=== PATIENT | female | born 1960 | race Caucasian/White ===

== ENCOUNTER 2018-08-26 09:47 | Outpatient (CLI) | payer SELFPAY | END 2018-08-26 09:48 | disposition home or self-care (01) | LOC: LAB 09:47 | PROVIDERS: ATTEND Physician Assistant | DX: Z02.1 Encounter for pre-employment examination (principal) | CPT/HCPCS: 36415; 81599; 86317; 86480; 86735; 86762; 86765; 86787 ==

== ENCOUNTER 2020-06-23 09:13 | Outpatient (CLI) | payer OTHER ==
[2020-06-23 09:55] LABS: % IRON SATURATION 29 % (20-50); ALBUMIN 3.9 g/dL (3.2-5.5); ALBUMIN/GLOBULIN RATIO 1.2 (1.0-2.2); ALKALINE PHOSPHATASE 113 IU/L (42-121); ALT ALANINE AMINOTRANSFERASE 19 IU/L (10-60); AST ASPARTATE AMINOTRANSFERASE 21 IU/L (10-42); BILIRUBIN,TOTAL 0.8 mg/dL (0.2-1.0); BUN - BLOOD UREA NITROGEN 11 mg/dL (6-20); CALCIUM 8.9 mg/dL (8.5-10.3); CARBON DIOXIDE - CO2 24 mmol/L (21-32); CHLORIDE 104 mmol/L (101-111); CHOL/HDL RATIO 2.8 (<4.4); CHOLESTEROL 168 mg/dL; CREATININE 0.8 mg/dL (0.4-1.0); GLUCOSE 95 mg/dL (70-100); HDL CHOLESTEROL 60 mg/dL; IRON 93 ug/dL (28-170); LDL CHOLESTEROL,CALCULATED 95 mg/dL; LDL/HDL RATIO 1.6 (<4.4); SODIUM 138 mmol/L (135-145); TOTAL IRON BINDING CAPACITY 319 ug/dL (250-450); TOTAL PROTEIN 7.1 g/dL (6.7-8.2); TRANSFERRIN 228 mg/dL (192-382); VLDL CHOLESTEROL 13 mg/dL
[2020-06-23 10:11] LABS: FERRITIN 155.7 ng/mL (11.0-306.8)
[2020-06-23 10:15] LABS: FOLATE 22.67 ng/mL (5.90 - >24.8)
== END 2020-06-23 09:14 | disposition home or self-care (01) ==
LOC: LAB 09:13
PROVIDERS: ATTEND Physician Assistant Medical
DX: Z00.00 Encounter for general adult medical examination without abnormal findings (principal); Z98.84 Bariatric surgery status
CPT/HCPCS: 36415; 80053; 80061; 82607; 82728; 82746; 83540; 83721; 84443; 84466

== ENCOUNTER 2020-06-26 15:57 | Outpatient (CLI) | payer OTHER ==
[2020-06-26 16:17] LABS: BASOPHILS % (AUTO) 0.6 %; EOSINOPHILS # (AUTO) 0.2 10^3/uL (0.0-0.7); EOSINOPHILS % (AUTO) 2.9 %; HGB - HEMOGLOBIN 13.7 g/dL (12.0-16.0); LYMPHOCYTES # (AUTO) 2.3 10^3/uL (1.5-3.5); MEAN CORPUSCULAR HEMOGLOBIN 31.9 pg (27.0-31.0); MEAN CORPUSCULAR HGB CONC 33.1 g/dL (32.0-36.0); MEAN CORPUSCULAR VOLUME 96.5 fL (81.0-99.0); MONOCYTES # (AUTO) 0.6 10^3/uL (0.0-1.0); MONOCYTES % (AUTO) 8.5 %; NEUTROPHILS # (AUTO) 3.4 10^3/uL (1.5-6.6); NEUTROPHILS % (AUTO) 51.7 %; PLT - PLATELET COUNT 300 10^3/uL (130-450); RED BLOOD COUNT 4.29 10^6/uL (4.20-5.40); RED CELL DISTRIBUTION WIDTH 13.8 % (12.0-15.0); WHITE BLOOD COUNT 6.5 x10^3/uL (4.8-10.8)
== END 2020-06-26 15:58 | disposition home or self-care (01) ==
LOC: LAB 15:57
PROVIDERS: ATTEND Physician Assistant Medical
DX: Z00.00 Encounter for general adult medical examination without abnormal findings (principal); Z98.84 Bariatric surgery status
CPT/HCPCS: 85025

== ENCOUNTER 2020-11-24 09:15 | Outpatient (CLI) | payer OTHER ==
--- NOTE | 2020-11-27 11:44 | Mammography Report ---
BILATERAL DIGITAL SCREENING MAMMOGRAM 3D/2D: 11/24/2020 CLINICAL: Routine screening. Comparison is made to exams dated: 09/25/2018 mammogram, 09/25/2017 mammogram, and 10/08/2016 mammogram - [facility]. There are scattered fibroglandular elements in both breasts. No significant masses, calcifications, or other findings are seen in either breast. There has been no significant interval change. IMPRESSION: NEGATIVE There is no mammographic evidence of malignancy. A 1 year screening mammogram is recommended. This exam was interpreted at Station ID: [id number]. NOTE: For mammograms, a report in lay terms will be sent to the patient. Approximately 15% of breast malignancies will not be visualized mammographically. In the management of a palpable breast mass, a negative mammogram must not discourage biopsy of a clinically suspicious lesion. Electronically Signed By: Сергей Griffiths M.D. aty/penrad:11/24/2020 13:07:09 ACR BI-RADS Category 1: Negative 3341F PARENCHYMAL PATTERN: (A) - The breast(s) demonstrate(s) scattered fibroglandular densities. BI-RADS CATEGORY: (1) - 1 RECOMMENDATION: (ANNUAL) - Recommend routine annual screening mammography. [id number] 1 year screening LATERALITY: (B)
== END 2020-11-24 09:16 | disposition home or self-care (01) ==
LOC: DI 09:15
DX: Z12.31 Encounter for screening mammogram for malignant neoplasm of breast (principal)

== ENCOUNTER 2021-02-09 14:34 | Outpatient (CLI) | payer OTHER ==
[2021-02-09 18:11] LABS: BASOPHILS # (AUTO) 0.1 10^3/uL (0.0-0.1); BASOPHILS % (AUTO) 0.8 %; EOSINOPHILS # (AUTO) 0.2 10^3/uL (0.0-0.7); EOSINOPHILS % (AUTO) 2.8 %; HGB - HEMOGLOBIN 13.7 g/dL (12.0-16.0); LYMPHOCYTES # (AUTO) 2.2 10^3/uL (1.5-3.5); LYMPHOCYTES % (AUTO) 34.7 %; MEAN CORPUSCULAR HEMOGLOBIN 31.6 pg (27.0-31.0); MEAN CORPUSCULAR HGB CONC 32.6 g/dL (32.0-36.0); MEAN PLATELET VOLUME 10.6 fL (7.9-10.8); MONOCYTES # (AUTO) 0.5 10^3/uL (0.0-1.0); MONOCYTES % (AUTO) 7.6 %; NEUTROPHILS # (AUTO) 3.5 10^3/uL (1.5-6.6); NEUTROPHILS % (AUTO) 53.8 %; PLT - PLATELET COUNT 291 10^3/uL (130-450); RED BLOOD COUNT 4.33 10^6/uL (4.20-5.40); RED CELL DISTRIBUTION WIDTH 13.7 % (12.0-15.0); WHITE BLOOD COUNT 6.5 x10^3/uL (4.8-10.8)
[2021-02-09 18:55] LABS: % IRON SATURATION 25 % (20-50); IRON 78 ug/dL (28-170); TOTAL IRON BINDING CAPACITY 314 ug/dL (250-450); TRANSFERRIN 224 mg/dL (192-382)
[2021-02-09 19:02] LABS: FERRITIN 120.7 ng/mL (11.0-306.8)
== END 2021-02-09 23:59 | disposition home or self-care (01) ==
LOC: LAB.WCP 14:34
PROVIDERS: ATTEND Physician Assistant Medical
DX: Z98.84 Bariatric surgery status (principal); D50.9 Iron deficiency anemia, unspecified
CPT/HCPCS: 36415; 82607; 82728; 83540; 84466; 85025

== ENCOUNTER 2021-10-04 11:58 | Outpatient (CLI) | payer OTHER ==
[2021-10-04 12:26] LABS: BASOPHILS # (AUTO) 0.1 10^3/uL (0.0-0.1); BASOPHILS % (AUTO) 0.9 %; EOSINOPHILS # (AUTO) 0.1 10^3/uL (0.0-0.7); EOSINOPHILS % (AUTO) 1.7 %; HCT - HEMATOCRIT 40.6 % (37.0-47.0); HGB - HEMOGLOBIN 13.7 g/dL (12.0-16.0); LYMPHOCYTES % (AUTO) 31.3 %; MEAN CORPUSCULAR HEMOGLOBIN 31.9 pg (27.0-31.0); MEAN CORPUSCULAR HGB CONC 33.7 g/dL (32.0-36.0); MEAN CORPUSCULAR VOLUME 94.6 fL (81.0-99.0); MONOCYTES # (AUTO) 0.4 10^3/uL (0.0-1.0); MONOCYTES % (AUTO) 5.8 %; NEUTROPHILS # (AUTO) 3.9 10^3/uL (1.5-6.6); NEUTROPHILS % (AUTO) 60.1 %; PLT - PLATELET COUNT 290 10^3/uL (130-450); RED BLOOD COUNT 4.29 10^6/uL (4.20-5.40); RED CELL DISTRIBUTION WIDTH 13.6 % (12.0-15.0); WHITE BLOOD COUNT 6.5 x10^3/uL (4.8-10.8)
[2021-10-04 12:43] LABS: ALBUMIN 3.9 g/dL (3.2-5.5); ALBUMIN/GLOBULIN RATIO 1.2 (1.0-2.2); ALKALINE PHOSPHATASE 99 IU/L (42-121); ALT ALANINE AMINOTRANSFERASE 18 IU/L (10-60); AST ASPARTATE AMINOTRANSFERASE 18 IU/L (10-42); BUN - BLOOD UREA NITROGEN 11 mg/dL (6-20); CALCIUM 9.1 mg/dL (8.5-10.3); CARBON DIOXIDE - CO2 28 mmol/L (21-32); CHLORIDE 104 mmol/L (101-111); CHOL/HDL RATIO 2.8 (<4.4); CHOLESTEROL 172 mg/dL; CREATININE 0.7 mg/dL (0.4-1.0); GFR - MDRD 86 (>89); GLUCOSE 94 mg/dL (70-100); HDL CHOLESTEROL 61 mg/dL; LDL CHOLESTEROL,CALCULATED 99 mg/dL; LDL/HDL RATIO 1.6 (<4.4); POTASSIUM 4.1 mmol/L (3.5-5.0); SODIUM 141 mmol/L (135-145); TOTAL PROTEIN 7.2 g/dL (6.7-8.2); TRIGLYCERIDES 59 mg/dL; VLDL CHOLESTEROL 12 mg/dL
[2021-10-04 12:54] LABS: THYROID STIMULATING HORMONE 2.1 uIU/mL (0.34-5.60)
[2021-10-04 13:00] LABS: FERRITIN 110.7 ng/mL (11.0-306.8)
== END 2021-10-04 11:59 | disposition home or self-care (01) ==
LOC: LAB 11:58
PROVIDERS: ATTEND Physician Assistant Medical
DX: Z00.00 Encounter for general adult medical examination without abnormal findings (principal); D50.9 Iron deficiency anemia, unspecified; E78.5 Hyperlipidemia, unspecified
CPT/HCPCS: 36415; 80050; 80061; 82306; 82607; 82728; 83721

== ENCOUNTER 2021-10-12 13:45 | Outpatient (CLI) | payer OTHER ==
--- NOTE | 2021-10-12 14:59 | XRAY Report ---
PROCEDURE: Knee 3 View BILAT INDICATIONS: BILATER KNEE PAIN TECHNIQUE: 3 views of right and left knee(s) were acquired. COMPARISON: None. FINDINGS: Bones: No fractures or dislocations. No suspicious bony lesions. Moderate degenerative joint disea se, most pronounced in the patellofemoral joints. Possible intra-articular bodies bilaterally. Soft tissues: Trace bilateral joint effusion. No suspicious soft tissue calcifications. IMPRESSION: 1. Moderate degenerative joint disease bilaterally. 2. Possible intra-articular bodies bilaterally. Reviewed by: Joes M Lechuga MD on 10/12/2021 2:58 PM PDT Approved by: Jose M Lechuga MD on 10/12/2021 2:58 PM PDT Station ID: [id number]
== END 2021-10-12 13:46 | disposition home or self-care (01) ==
LOC: DI 13:45
PROVIDERS: ATTEND Physician Assistant Medical
DX: M17.0 Bilateral primary osteoarthritis of knee (principal); R93.6 Abnormal findings on diagnostic imaging of limbs

== ENCOUNTER 2021-12-06 14:45 | Outpatient (CLI) | payer OTHER ==
--- NOTE | 2021-12-07 08:23 | Mammography Report ---
BILATERAL DIGITAL SCREENING MAMMOGRAM 3D/2D: 12/06/2021 CLINICAL: Routine screening. Comparison is made to exams dated: 11/24/2020 mammogram - [facility], 09/25/2018 [facility] mogram, 09/25/2017 mammogram, and 10/08/2016 mammogram - [facility]. There are scattere d fibroglandular elements in both breasts. No significant masses, calcifications, or other findings are seen in either breast. There has been no significant interval change. IMPRESSION: NEGATIVE There is no mammographic evidence of malignancy. A 1 year screening mammogram is recommended. This exam was interpreted at Station ID: [id number]. NOTE: For mammograms, a report in lay terms will be sent to the patient. Approximately 15% of breast malignancies will not be visualized mammographically. In the management of a palpable breast mass, a negative mammogram must not discourage biopsy of a clinically suspicious lesion. Electronically Signed By: Fernando castillo/porfirio:12/06/2021 16:52:53 ACR BI-RADS Category 1: Negative 3341F PARENCHYMAL PATTERN: (A) - The breast(s) demonstrate(s) scattered fibroglandular densities. BI-RADS CATEGORY: (1) - 1 RECOMMENDATION: (ANNUAL) - Recommend routine annual screening mammography. [id number] 1 year screening LATERALITY: (B)
== END 2021-12-06 14:46 | disposition home or self-care (01) ==
LOC: DI.N 14:45
DX: Z12.31 Encounter for screening mammogram for malignant neoplasm of breast (principal)

== ENCOUNTER 2022-11-05 14:30 | Outpatient (CLI) | payer OTHER ==
--- NOTE | 2022-11-05 18:06 | XRAY Report ---
PROCEDURE: Knee 2 View LT INDICATIONS: PAIN IN LEFT KNEE TECHNIQUE: 2 views of the left knee(s) were acquired. COMPARISON: None. FINDINGS: Bones: No fractures or dislocations. No suspicious bony lesions. Definite osteophytes and possibl e narrowing of joint space. This is tricompartmental. Soft tissues: Moderate knee joint effusion. No suspicious soft tissue calcifications or masses. IMPRESSION: Moderate knee joint effusion. No acute bony abnormality. Tricompartmental Kellgren-Italo scale of osteoarthritis: Grade 2: mild osteoarthritis. Reviewed by: Trey Rose on 11/05/2022 5:04 PM CHRISTA Approved by: Trey Rose on 11/05/2022 5:04 PM CHRISTA Station ID: [id number]
== END 2022-11-05 14:45 | disposition home or self-care (01) ==
LOC: DI.N 14:30
PROVIDERS: ATTEND Nurse Practitioner
DX: M17.12 Unilateral primary osteoarthritis, left knee (principal); M25.462 Effusion, left knee

== ENCOUNTER 2022-11-20 12:44 | Outpatient (CLI) | payer OTHER ==
[2022-11-20 13:03] LABS: BASOPHILS # (AUTO) 0.1 10^3/uL (0.0-0.1); BASOPHILS % (AUTO) 0.9 %; EOSINOPHILS # (AUTO) 0.2 10^3/uL (0.0-0.7); EOSINOPHILS % (AUTO) 2.4 %; HCT - HEMATOCRIT 40.3 % (37.0-47.0); HGB - HEMOGLOBIN 13.5 g/dL (12.0-16.0); LYMPHOCYTES # (AUTO) 2.1 10^3/uL (1.5-3.5); LYMPHOCYTES % (AUTO) 30.7 %; MEAN CORPUSCULAR HEMOGLOBIN 31.5 pg (27.0-31.0); MEAN CORPUSCULAR HGB CONC 33.5 g/dL (32.0-36.0); MEAN CORPUSCULAR VOLUME 94.2 fL (81.0-99.0); MEAN PLATELET VOLUME 8.9 fL (7.9-10.8); MONOCYTES # (AUTO) 0.5 10^3/uL (0.0-1.0); MONOCYTES % (AUTO) 7.5 %; NEUTROPHILS # (AUTO) 3.9 10^3/uL (1.5-6.6); NEUTROPHILS % (AUTO) 58.4 %; PLT - PLATELET COUNT 298 10^3/uL (130-450); RED BLOOD COUNT 4.28 10^6/uL (4.20-5.40); RED CELL DISTRIBUTION WIDTH 13.4 % (12.0-15.0); WHITE BLOOD COUNT 6.7 x10^3/uL (4.8-10.8)
[2022-11-20 13:19] LABS: ALBUMIN 3.9 g/dL (3.2-5.5); ALBUMIN/GLOBULIN RATIO 1.1 (1.0-2.2); ALKALINE PHOSPHATASE 111 IU/L (42-121); ALT ALANINE AMINOTRANSFERASE 20 IU/L (10-60); AST ASPARTATE AMINOTRANSFERASE 23 IU/L (10-42); BILIRUBIN,TOTAL 0.7 mg/dL (0.2-1.0); BUN - BLOOD UREA NITROGEN 13 mg/dL (6-20); CALCIUM 8.8 mg/dL (8.5-10.3); CARBON DIOXIDE - CO2 28 mmol/L (21-32); CHLORIDE 104 mmol/L (101-111); CHOL/HDL RATIO 2.6 (<4.4); CHOLESTEROL 177 mg/dL; CREATININE 0.7 mg/dL (0.4-1.0); GFR - MDRD 86 (>89); GLUCOSE 97 mg/dL (70-100); HDL CHOLESTEROL 69 mg/dL; LDL CHOLESTEROL,CALCULATED 98 mg/dL; LDL/HDL RATIO 1.4 (<4.4); POTASSIUM 3.9 mmol/L (3.5-5.0); SODIUM 138 mmol/L (135-145); TOTAL PROTEIN 7.3 g/dL (6.7-8.2); TRIGLYCERIDES 50 mg/dL; VLDL CHOLESTEROL 10 mg/dL
== END 2022-11-20 12:45 | disposition home or self-care (01) ==
LOC: LAB 12:44
PROVIDERS: ATTEND Physician Assistant Medical
DX: D50.9 Iron deficiency anemia, unspecified (principal); E78.5 Hyperlipidemia, unspecified; Z79.899 Other long term (current) drug therapy
CPT/HCPCS: 36415; 80053; 80061; 83721; 85025

== ENCOUNTER 2022-11-26 08:00 | Outpatient (CLI) | payer OTHER ==
--- NOTE | 2022-11-26 17:00 | XRAY Report ---
PROCEDURE: Knee 3 View LT INDICATIONS: LEFT KNEE PAIN TECHNIQUE: 3 views of the left knee(s) were acquired. COMPARISON: Left knee 2 views dated 11/05/2022. FINDINGS: Bones: No fractures or dislocations. No suspicious bony lesions. Tricompartment degenerative arth ritis with bulky lateral compartment osteophytes and mild lateral subluxation of the tibia relative t o the femur, and severe lateral patellofemoral joint space loss. There are probable intra-articular b odies. Soft tissues: There is no lateral view provided. Therefore, the presence or absence of any joint effu lina is not established. No suspicious soft tissue calcifications or masses. IMPRESSION: Tricompartment degenerative arthritis with bulky lateral compartment osteophytes, severe patellofemor al joint space loss, and probable intra-articular bodies. Reviewed by: Enio Allen MD on 11/26/2022 4:59 PM PDT Approved by: Enio Allen MD on 11/26/2022 4:59 PM PDT Station ID: [id number]
== END 2022-11-26 23:59 | disposition home or self-care (01) ==
LOC: DI.WOS 08:00
PROVIDERS: ATTEND Physician Assistant Surgical
DX: M17.12 Unilateral primary osteoarthritis, left knee (principal); M25.762 Osteophyte, left knee

== ENCOUNTER 2022-12-13 12:42 | Outpatient (CLI) | payer OTHER ==
--- NOTE | 2022-12-16 10:52 | Mammography Report ---
BILATERAL DIGITAL SCREENING MAMMOGRAM 3D/2D: 12/13/2022 CLINICAL: Routine screening. Comparison is made to exams dated: 12/06/2021 mammogram, 11/24/2020 mammogram - [facility], 09/25/2018 mammogram, 09/25/2017 mammogram, and 10/08/2016 mammogram - [facility] . There are scattered areas of fibroglandular density in both breasts (category b / 25%-50% glandular t issue). There is a possible irregular equal density asymmetry with a spiculated margin in the right breast mi ddle depth central to the nipple seen on the craniocaudal view only. This is increased in size. No other significant masses, calcifications, or other findings are seen in either breast. IMPRESSION: INCOMPLETE: NEEDS ADDITIONAL IMAGING EVALUATION The possible irregular equal density asymmetry in the right breast is indeterminate. Additional view s with possible ultrasound are recommended. Based on the Tyrer Cuzick model (a risk assessment model) the patients lifetime risk is 11.7% and he r 10 year risk is 4.5%. According to the ACR, ACS, and NCCN guidelines, an annual breast MRI exam freeman ng with mammogram is recommended if the patients lifetime risk is 20% or greater. This exam was interpreted at Station ID: [id number]. NOTE: For mammograms, a report in lay terms will be sent to the patient. Approximately 15% of breast malignancies will not be visualized mammographically. In the management of a palpable breast mass, a negative mammogram must not discourage biopsy of a clinically suspicious lesion. Electronically Signed By: China mckeon/porfirio:12/13/2022 15:25:37 ACR BI-RADS Category 0: Incomplete 3340F PARENCHYMAL PATTERN: (A) - The breast(s) demonstrate(s) scattered fibroglandular densities. BI-RADS CATEGORY: (0) - 0 Mammo and [place] [id number] Immediate follow-up LATERALITY: (B)
== END 2022-12-13 12:43 | disposition home or self-care (01) ==
LOC: DI 12:42
DX: Z12.31 Encounter for screening mammogram for malignant neoplasm of breast (principal); R92.8 Other abnormal and inconclusive findings on diagnostic imaging of breast

== ENCOUNTER 2022-12-13 12:46 | Outpatient (CLI) | payer OTHER ==
[2022-12-13 13:02] LABS: BASOPHILS # (AUTO) 0.1 10^3/uL (0.0-0.1); BASOPHILS % (AUTO) 0.9 %; EOSINOPHILS # (AUTO) 0.1 10^3/uL (0.0-0.7); EOSINOPHILS % (AUTO) 1.8 %; HCT - HEMATOCRIT 41.7 % (37.0-47.0); HGB - HEMOGLOBIN 14.1 g/dL (12.0-16.0); LYMPHOCYTES % (AUTO) 28.7 %; MEAN CORPUSCULAR HEMOGLOBIN 31.5 pg (27.0-31.0); MEAN CORPUSCULAR HGB CONC 33.8 g/dL (32.0-36.0); MEAN CORPUSCULAR VOLUME 93.1 fL (81.0-99.0); MEAN PLATELET VOLUME 8.9 fL (7.9-10.8); MONOCYTES # (AUTO) 0.5 10^3/uL (0.0-1.0); NEUTROPHILS # (AUTO) 4.3 10^3/uL (1.5-6.6); NEUTROPHILS % (AUTO) 61.3 %; PLT - PLATELET COUNT 313 10^3/uL (130-450); RED BLOOD COUNT 4.48 10^6/uL (4.20-5.40); RED CELL DISTRIBUTION WIDTH 13.3 % (12.0-15.0)
[2022-12-13 13:21] LABS: % IRON SATURATION 22 % (20-50); ALBUMIN 3.9 g/dL (3.2-5.5); ALBUMIN/GLOBULIN RATIO 1.1 (1.0-2.2); ALKALINE PHOSPHATASE 115 IU/L (42-121); ALT ALANINE AMINOTRANSFERASE 20 IU/L (10-60); AST ASPARTATE AMINOTRANSFERASE 20 IU/L (10-42); BILIRUBIN,TOTAL 0.7 mg/dL (0.2-1.0); BUN - BLOOD UREA NITROGEN 12 mg/dL (6-20); CALCIUM 8.9 mg/dL (8.5-10.3); CARBON DIOXIDE - CO2 27 mmol/L (21-32); CHLORIDE 103 mmol/L (101-111); CHOL/HDL RATIO 2.4 (<4.4); CHOLESTEROL 165 mg/dL; CREATININE 0.8 mg/dL (0.4-1.0); GFR - MDRD 73 (>89); GLUCOSE 95 mg/dL (70-100); HDL CHOLESTEROL 68 mg/dL; IRON 76 ug/dL (28-170); LDL CHOLESTEROL,CALCULATED 85 mg/dL; LDL/HDL RATIO 1.3 (<4.4); POTASSIUM 3.6 mmol/L (3.5-5.0); SODIUM 139 mmol/L (135-145); TOTAL IRON BINDING CAPACITY 349 ug/dL (250-450); TOTAL PROTEIN 7.4 g/dL (6.7-8.2); TRANSFERRIN 249 mg/dL (192-382); TRIGLYCERIDES 58 mg/dL; VLDL CHOLESTEROL 12 mg/dL
[2022-12-13 13:31] LABS: THYROID STIMULATING HORMONE 2.09 uIU/mL (0.34-5.60)
[2022-12-13 13:38] LABS: FERRITIN 91.2 ng/mL (11.0-306.8)
[2022-12-13 14:16] LABS: ESTIMATED AVERAGE GLUCOSE 105 mg/dL (70-100); HEMOGLOBIN A1c% 5.3 % (4.27-6.07)
== END 2022-12-13 12:47 | disposition home or self-care (01) ==
LOC: LAB 12:46
PROVIDERS: ATTEND Physician Assistant Medical
DX: Z98.84 Bariatric surgery status (principal)
CPT/HCPCS: 36415; 80050; 80061; 82306; 82607; 82728; 83036; 83540; 83721; 84466

== ENCOUNTER 2023-01-09 12:21 | Outpatient (CLI) | payer OTHER ==
--- NOTE | 2023-01-10 09:37 | Mammography Report ---
UNILATERAL RIGHT DIGITAL DIAGNOSTIC MAMMOGRAM 3D/2D: 01/09/2023 CLINICAL: Patient returns today to evaluate an asymmetry in the right breast. Comparison is made to exams dated: 12/13/2022 mammogram, 12/06/2021 mammogram, 11/24/2020 mammogram - [facility], 09/25/2018 mammogram, and 09/25/2017 mammogram - [facility] . There are scattered areas of fibroglandular density in the right breast (category b / 25%-50% glandul ar tissue). There is a possible asymmetry in the right breast middle depth central to the nipple seen on the cran iocaudal view only. This is not seen in additional views. No other significant masses or calcifications are seen in the breast. IMPRESSION: NEGATIVE There is no mammographic evidence of malignancy. Possible asymmetry in the right breast is not confirmed and consistent with benign fibroglandular tis amie. A 1 year screening mammogram is recommended. Exam findings were conveyed to the patient. Based on the Tyrer Cuzick model (a risk assessment model) the patients lifetime risk is 11.4% and he r 10 year risk is 4.6%. According to the ACR, ACS, and NCCN guidelines, an annual breast MRI exam freeman ng with mammogram is recommended if the patients lifetime risk is 20% or greater. This exam was interpreted at Station ID: [id number]. NOTE: For mammograms, a report in lay terms will be sent to the patient. Approximately 15% of breast malignancies will not be visualized mammographically. In the management of a palpable breast mass, a negative mammogram must not discourage biopsy of a clinically suspicious lesion. Electronically Signed By: Luke Fernandez M.D. [facility] [place]01/09/2023 13:25:43 ACR BI-RADS Category 1: Negative 3341F PARENCHYMAL PATTERN: (A) - The breast(s) demonstrate(s) scattered fibroglandular densities. BI-RADS CATEGORY: (1) - 1 Mammogram [id number] 1 year screening LATERALITY: (B)
== END 2023-01-09 12:22 | disposition home or self-care (01) ==
LOC: DI 12:21
PROVIDERS: ATTEND Physician Assistant Medical
DX: R92.8 Other abnormal and inconclusive findings on diagnostic imaging of breast (principal)

== ENCOUNTER 2023-11-25 10:25 | Emergency (ER) | payer OTHER ==
[2023-11-25 10:59] VITALS: BP 147/87; O2SAT 98
--- NOTE | 2023-11-25 11:25 | XRAY Report ---
PROCEDURE: Ankle 3+V LT INDICATIONS: Trauma TECHNIQUE: 3 views of the ankle were acquired. COMPARISON: None. FINDINGS: Bones: No fractures or dislocations. Ankle mortise is normally aligned. No suspicious bony lesions . Well-defined plantar calcaneal enthesophyte is seen. Soft tissues: No tibiotalar joint effusion. Achilles tendon appears normal. IMPRESSION: No acute bony abnormality. Plantar calcaneal enthesophyte. No gross soft tissue abnormalities. Reviewed by: Jung Engel MD on 11/25/2023 11:24 AM PDT Approved by: Jung Engel MD on 11/25/2023 11:24 AM PDT Station ID: [id number]
--- NOTE | 2023-11-25 11:34 | ED Physician Documentation ---
PD HPI LOWER EXT INJURY - Stated complaint Stated Complaint: LT FOOT INJ - Chief complaint Chief Complaint: Trauma Ext - History obtained from History obtained from: Patient - Additional information Additional information: 62-year-old female presents with left ankle pain for 1 day. States she was walking up a curb and felt a sudden sharp pain on the outside of her left ankle. Has had difficulty ambulating due to pain. Reports chronic pain with her joints. Review of Systems Constitutional: denies: Fever, Chills Musculoskeletal: reports: Joint pain. 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 HEENT: None Psych: Anxiety Musculoskeletal: None Derm: None - Past Surgical History Past Surgical History: Yes General: Bowel surgery, Gastric surgery - Present Medications Home Medications: Ambulatory Orders Medication Instructions Recorded Confirmed Ascorbate Calcium [Vitamin C] 09/02/13 09/02/13 Calcium Carbonate [Calcium] 500 mg PO 09/02/13 09/02/13 Multivitamin [Multi-Day Vitamins] 1 each PO 09/02/13 09/02/13 Simvastatin [Zocor] 20 mg PO QPM 09/02/13 09/02/13 Venlafaxine [Effexor] 75 mg PO DAILY 09/02/13 09/02/13 - Allergies Allergies/Adverse Reactions: Allergies Allergy/AdvReac Type Severity Reaction Status Date / Time ampicillin Allergy Rash Verified 11/25/23 10:45 ciprofloxacin [From Cipro] Allergy resp Verified 11/25/23 10:45 ciprofloxacin HCl * Allergy resp Verified 11/25/23 10:45 [From Cipro] - Social History Does the pt smoke?: No Smoking Status: Never smoker Does the pt drink ETOH?: No Does the pt have substance abuse?: No - Immunizations Immunizations are current?: Yes - POLST Patient has POLST: No POLST Status: Full Code PD ED PE NORMAL - Vitals Vital signs reviewed: Yes - General General: Alert and oriented X 3, No acute distress, Well developed/nourished - Respiratory Respiratory: No respiratory distress - Derm Derm: Normal color, Warm and dry, No rash - Extremities Extremities: No deformity, Normal ROM s pain, No edema, No calf tenderness / cord, Other (TTP L lateral malleolar region) - Neuro Neuro: Alert and oriented X 3, 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 Has lateral malleolar tenderness without deformity. Palpable pulses. X-rays negative for acute findings. Placed in Damian wrap bandage, recommended follow-up with primary and orthopedics if she continues to experience symptoms. RICE instructions counseled at bedside. Departure - Departure Disposition: 01 Home, Self Care Clinical Impression: Ankle injury Condition: Stable Instructions: ED Sprain Ankle W X Ray Follow-Up: Renard Alicea MD [Provider Admit Priv/Credential] - Comments: Take Tylenol and ibuprofen as needed for pain. You can also apply ice for comfort. Elevate your ankle above heart level to decrease swelling and pain. I recommend close follow-up with your primary care doctor for your reported joint pains. You may also follow-up with orthopedic surgery if your ankle does not get better. Forms: PCP List
== END 2023-11-25 12:05 | disposition home or self-care (01) ==
LOC: ED 10:25
DX: S99.912A Unspecified injury of left ankle, initial encounter (principal); X58.XXXA Exposure to other specified factors, initial encounter; Y93.01 Activity, walking, marching and hiking; I10 Essential (primary) hypertension; E78.00 Pure hypercholesterolemia, unspecified; Z79.899 Other long term (current) drug therapy
CPT/HCPCS: 99283

== ENCOUNTER 2023-12-31 11:26 | Outpatient (CLI) | payer OTHER ==
[2023-12-31 11:53] LABS: BASOPHILS % (AUTO) 0.6 %; EOSINOPHILS # (AUTO) 0.1 10^3/uL (0.0-0.7); EOSINOPHILS % (AUTO) 2.1 %; HCT - HEMATOCRIT 40.2 % (37.0-47.0); HGB - HEMOGLOBIN 13.3 g/dL (12.0-16.0); LYMPHOCYTES # (AUTO) 2.1 10^3/uL (1.5-3.5); LYMPHOCYTES % (AUTO) 32.3 %; MEAN CORPUSCULAR HEMOGLOBIN 30.8 pg (27.0-31.0); MEAN CORPUSCULAR HGB CONC 33.1 g/dL (32.0-36.0); MEAN CORPUSCULAR VOLUME 93.1 fL (81.0-99.0); MEAN PLATELET VOLUME 8.8 fL (7.9-10.8); MONOCYTES # (AUTO) 0.4 10^3/uL (0.0-1.0); MONOCYTES % (AUTO) 5.5 %; NEUTROPHILS # (AUTO) 3.9 10^3/uL (1.5-6.6); NEUTROPHILS % (AUTO) 59.3 %; PLT - PLATELET COUNT 343 10^3/uL (130-450); RED BLOOD COUNT 4.32 10^6/uL (4.20-5.40); RED CELL DISTRIBUTION WIDTH 13.4 % (12.0-15.0); WHITE BLOOD COUNT 6.5 x10^3/uL (4.8-10.8)
[2023-12-31 12:11] LABS: ALBUMIN 4.1 g/dL (3.2-5.5); ALBUMIN/GLOBULIN RATIO 1.3 (1.0-2.2); ALKALINE PHOSPHATASE 123 IU/L (42-121); ALT ALANINE AMINOTRANSFERASE 20 IU/L (10-60); AST ASPARTATE AMINOTRANSFERASE 17 IU/L (10-42); BILIRUBIN,TOTAL 0.6 mg/dL (0.2-1.0); BUN - BLOOD UREA NITROGEN 12 mg/dL (6-20); CALCIUM 9.4 mg/dL (8.5-10.3); CARBON DIOXIDE - CO2 28 mmol/L (21-32); CHLORIDE 105 mmol/L (101-111); CHOLESTEROL 155 mg/dL; CREATININE 0.7 mg/dL (0.6-1.3); CRP - C-REACTIVE PROTEIN < 0.5 mg/dL (<0.5); GFR - MDRD 85 (>89); GLUCOSE 89 mg/dL (74-104); HDL CHOLESTEROL 52 mg/dL; LDL CHOLESTEROL,CALCULATED 89 mg/dL; LDL/HDL RATIO 1.7 (<4.4); POTASSIUM 3.9 mmol/L (3.5-4.5); SODIUM 140 mmol/L (135-145); TOTAL PROTEIN 7.2 g/dL (6.4-8.9); TRIGLYCERIDES 70 mg/dL; VLDL CHOLESTEROL 14 mg/dL
[2023-12-31 12:23] LABS: THYROID STIMULATING HORMONE 2.03 uIU/mL (0.34-5.60)
[2023-12-31 12:30] LABS: FERRITIN 86.4 ng/mL (11.0-306.8)
[2023-12-31 13:15] LABS: RHEUMATOID FACTOR NEGATIVE (Negative)
[2024-01-01 05:14] LABS: VITAMIN D 25-HYDROXY 32.2 ng/mL (30.0-100.0)
[2024-01-01 16:08] LABS: ANTI-DNA (DS) AB QN <1 IU/mL (0-9)
== END 2023-12-31 11:27 | disposition home or self-care (01) ==
LOC: LAB 11:26
PROVIDERS: ATTEND Physician Assistant Medical
DX: Z00.00 Encounter for general adult medical examination without abnormal findings (principal); E78.5 Hyperlipidemia, unspecified; Z98.84 Bariatric surgery status; D50.9 Iron deficiency anemia, unspecified; M25.50 Pain in unspecified joint
CPT/HCPCS: 36415; 80050; 80061; 82306; 82607; 82728; 83721; 85651; 86038; 86140; 86225; 86430

== ENCOUNTER 2024-01-30 13:01 | Outpatient (CLI) | payer OTHER ==
--- NOTE | 2024-02-02 08:27 | Mammography Report ---
BILATERAL DIGITAL SCREENING MAMMOGRAM 3D/2D WITH EXAGGERATED CC: 01/30/2024 CLINICAL: Routine screening. Comparison is made to exams dated: 01/09/2023 mammogram, 12/13/2022 mammogram, 12/06/2021 mammogram, an d 11/24/2020 mammogram - [facility]. There are scattered areas of fibroglandular density in both breasts (category b / 25%-50% glandular t issue). No significant masses, calcifications, or other findings are seen in either breast. There has been no significant interval change. IMPRESSION: NEGATIVE There is no mammographic evidence of malignancy. A 1 year screening mammogram is recommended. Based on the Tyrer Cuzick model (a risk assessment model) the patient's lifetime risk is 11.2% and he r 10 year risk is 4.7%. According to the ACR, ACS, and NCCN guidelines, an annual breast MRI exam freeman ng with mammogram is recommended if the patient's lifetime risk is 20% or greater. This exam was interpreted at Station ID: [id number]. NOTE: For mammograms, a report in lay terms will be sent to the patient. Approximately 15% of breast malignancies will not be visualized mammographically. In the management of a palpable breast mass, a negative mammogram must not discourage biopsy of a clinically suspicious lesion. Electronically Signed By: Fernando castillo/porfirio:01/30/2024 16:36:27 letter sent: No_Letter ACR BI-RADS Category 1: Negative 3341F PARENCHYMAL PATTERN: (A) - The breast(s) demonstrate(s) scattered fibroglandular densities. BI-RADS CATEGORY: (1) - 1 RECOMMENDATION: (ANNUAL) - Recommend routine annual screening mammography. [id number] 1 year screening LATERALITY: (B)
== END 2024-01-30 13:02 | disposition home or self-care (01) ==
LOC: DI 13:01
DX: Z12.31 Encounter for screening mammogram for malignant neoplasm of breast (principal); R92.323 Mammographic fibroglandular density, bilateral breasts

== ENCOUNTER 2024-02-10 12:30 | Outpatient (CLI) | payer OTHER | END 2024-02-10 12:45 | disposition home or self-care (01) | LOC: LAB.N 12:30 | PROVIDERS: ATTEND Family Medicine | DX: M25.50 Pain in unspecified joint (principal); M79.604 Pain in right leg; M79.605 Pain in left leg | CPT/HCPCS: 36415; 82550; 85651 ==

== ENCOUNTER 2024-02-11 11:42 | Outpatient (CLI) | payer OTHER ==
[2024-02-11 11:52] LABS: BASOPHILS # (AUTO) 0.1 10^3/uL (0.0-0.1); EOSINOPHILS # (AUTO) 0.2 10^3/uL (0.0-0.7); EOSINOPHILS % (AUTO) 3.6 %; HCT - HEMATOCRIT 38.4 % (37.0-47.0); HGB - HEMOGLOBIN 12.6 g/dL (12.0-16.0); LYMPHOCYTES # (AUTO) 1.8 10^3/uL (1.5-3.5); LYMPHOCYTES % (AUTO) 29.9 %; MEAN CORPUSCULAR HEMOGLOBIN 31.3 pg (27.0-31.0); MEAN CORPUSCULAR HGB CONC 32.8 g/dL (32.0-36.0); MEAN CORPUSCULAR VOLUME 95.3 fL (81.0-99.0); MEAN PLATELET VOLUME 8.9 fL (7.9-10.8); MONOCYTES # (AUTO) 0.4 10^3/uL (0.0-1.0); MONOCYTES % (AUTO) 7.1 %; NEUTROPHILS # (AUTO) 3.6 10^3/uL (1.5-6.6); NEUTROPHILS % (AUTO) 58.1 %; PLT - PLATELET COUNT 263 10^3/uL (130-450); RED BLOOD COUNT 4.03 10^6/uL (4.20-5.40); RED CELL DISTRIBUTION WIDTH 14.2 % (12.0-15.0); WHITE BLOOD COUNT 6.2 x10^3/uL (4.8-10.8)
[2024-02-11 12:07] LABS: CALCIUM 8.8 mg/dL (8.5-10.3); CREATININE 0.7 mg/dL (0.6-1.3); POTASSIUM 4.2 mmol/L (3.5-4.5)
== END 2024-02-11 11:43 | disposition home or self-care (01) ==
LOC: LAB 11:42
PROVIDERS: ATTEND Physician Assistant
DX: M79.605 Pain in left leg (principal); M79.604 Pain in right leg
CPT/HCPCS: 36415; 80048; 85025

== ENCOUNTER 2024-02-20 12:38 | Outpatient (CLI) | payer OTHER ==
--- NOTE | 2024-02-21 06:35 | DEXA Report ---
PROCEDURE: Dexa Spine and/or Hip INDICATIONS: POST MENOPAUSAL TECHNIQUE: Dual energy x-ray absorptiometry (DXA) was performed on a [employer] System. Regions measur ed are the AP Spine, femoral neck, and if needed forearm. COMPARISON: None FINDINGS: Lumbar Spine: Bone Mineral Density: 1.24 g/cm/cm,T score: 0.5. Left Femoral Neck: Bone Mineral Density: 1.04 g/cm/cm, T score: 0. Left Hip: Bone Mineral Density: 1.06 g/cm/cm,T score: 0.4. FRAX not applicable (T score greater or equal to -1.0: NORMAL) (T score from -1.1 to -2.4: OSTEOPENIA) (T score less than or equal to -2.5 to: OSTEOPOROSIS) Impression: By WHO criteria, this patient has normal bone mineral density Patients with diagnosis of osteoporosis or osteopenia should have regular bone mineral density assess ment. For those eligible for Medicare, routine testing is allowed once every 2 years. Testing frequ ency can be increased for patients who have rapidly progressing disease or for those who are receivin g medical therapy to restore bone mass. Reviewed by: Kole Do MD on 02/21/2024 6:34 AM PDT Approved by: Kole Do MD on 02/21/2024 6:34 AM PDT Station ID: [id number]
== END 2024-02-20 12:39 | disposition home or self-care (01) ==
LOC: DI 12:38
PROVIDERS: ATTEND Physician Assistant Medical
DX: Z78.0 Asymptomatic menopausal state (principal)

== ENCOUNTER 2024-02-23 20:46 | Outpatient (CLI) | payer OTHER ==
--- NOTE | 2024-02-24 08:57 | Ultrasound Report ---
PROCEDURE: Duplex Ext Veins Bilateral INDICATIONS: Bilateral leg pain. Superficial thrombophlebitis TECHNIQUE: Real-time imaging, as well as color and pulse Doppler interrogation, were performed of the deep veins of both legs from the inguinal ligament to the popliteal fossa. Attempted visualization of the calf veins was performed. COMPARISON: None FINDINGS: The deep veins of both lower extremities are normally compressible, and free of intralumin al thrombus. Color and pulse Doppler demonstrate normal phasic intravascular flow. There is normal augmentation response to distal compression maneuver. IMPRESSION: No deep venous thrombosis of the visualized lower extremities bilaterally. Reviewed by: Mauro Camargo MD on 02/24/2024 8:56 AM PDT Approved by: Mauro Camargo MD on 02/24/2024 8:56 AM PDT Station ID: [id number]
== END 2024-02-23 20:47 | disposition home or self-care (01) ==
LOC: DI 20:46
PROVIDERS: ATTEND Family Medicine
DX: I80.9 Phlebitis and thrombophlebitis of unspecified site (principal)
CPT/HCPCS: 93970

== ENCOUNTER 2024-02-26 12:00 | Outpatient (CLI) | payer OTHER ==
[2024-02-26 18:46] LABS: CALCIUM 9.6 mg/dL (8.5-10.3); CREATININE 0.7 mg/dL (0.6-1.3); POTASSIUM 4.5 mmol/L (3.5-4.5)
== END 2024-02-26 12:15 | disposition home or self-care (01) ==
LOC: LAB.N 12:00
PROVIDERS: ATTEND Family Medicine
DX: M60.9 Myositis, unspecified (principal)
CPT/HCPCS: 36415; 80048; 82550; 85651

== ENCOUNTER 2024-03-05 08:18 | Day surgery (SDC) | payer OTHER ==
--- NOTE | 2024-03-05 09:09 | ANESTHESIA ---
Pre-Anesthesia VS, & Labs - Diagnosis History of gastric bypass, screening exam - Procedure EGD and colonoscopy Vital Signs: Temp Pulse Resp BP Pulse Ox O2 Flow Rate 36.0 C L 79 14 131/73 H 96 03/05/24 08:37 03/05/24 08:37 03/05/24 08:37 03/05/24 08:37 03/05/24 08:37 Height: 5 ft 4 in Weight (kg): 114.3 kg Body Mass Index: 43.2 BMI Classification: Morbidly Obese - NPO >8 hours - Is Patient ?: No Home Medications and Allergies Home Medications: Ambulatory Orders Tizanidine HCl 1 tab PO TID 03/04/24 prednisoLONE [Prednisolone] 30 mg PO DAILY 03/04/24 Calcium Carbonate [Calcium] 500 mg PO TID 09/02/13 Multivitamin [Multi-Day Vitamins] 1 each PO DAILY 09/02/13 Venlafaxine [Effexor] 75 mg PO DAILY 09/02/13 Tizanidine HCl 1 tab PO TID 03/04/24 prednisoLONE [Prednisolone] 30 mg PO DAILY 03/04/24 Allergies/Adverse Reactions: Allergies Allergy/AdvReac Type Severity Reaction Status Date / Time ampicillin Allergy Rash Verified 03/04/24 13:17 ciprofloxacin [From Cipro] Allergy resp Verified 03/04/24 13:17 ciprofloxacin HCl * Allergy resp Verified 03/04/24 13:17 [From Cipro] Anes History & Medical History - Anesthetic History Anesthesia Complications: reports: No previous complications - Medical History Cardiovascular: reports: Hypertension, High cholesterol Pulmonary: reports: None Gastrointestinal: reports: GI bleed, Hiatal hernia, Other (gastric bypass) Urinary: reports: Frequency Neuro: reports: None Musculoskeletal: reports: None Endocrine/Autoimmune: reports: None Blood Disorders: reports: Anemia Skin: reports: None Smoking Status: Never smoker Psychosocial: reports: No issues indicated History of Cancer?: No - Surgical History General: reports: Bowel surgery (ischemic bowel, with resection), Gastric surgery Eyes Ears Nose Throat (EENT): reports: Tonsil/Adenoidectomy Exam General: Alert, Oriented x3, Cooperative, No acute distress Dental: WNL Mouth Openin Fingerbreadth Neck Mobility: Normal Mallampati classification: II Thyromental Distance: 4-6 cm Mental/Cognitive Status: Alert/Oriented X3, Normal for patient Plan Anesthesia Type: General, Total IV Consent for Procedure(s) Verified and Reviewed: Yes Code Status: Attempt Resuscitation ASA classification: 3-Severe systemic disease Is this case an emergency?: No
[2024-03-05] MEDS ORDERED: PROPOFOL 500 MG/50 ML 500 MG/50 ML VIAL ONE ×2 (09:16→10:10)
[2024-03-05] MEDS: LACTATED RINGERS 1,000 ML IV ONE (09:20)
[2024-03-05] MEDS ORDERED: PROPOFOL 200 MG/20 ML VIAL IVP ONE (09:59)
[2024-03-05] MEDS: LACTATED RINGERS 200 ML IV ONE (10:44)
[2024-03-05 11:09] VITALS: BP 119/71; O2SAT 99
[2024-03-05] MEDS ORDERED: DIATRIZOATE MEGLU/DIATRIZO SOD 30 ML BOTTLE PO ONE (11:27)
--- NOTE | 2024-03-05 12:31 | CT Report ---
PROCEDURE: Abdomen/Pelvis WO INDICATIONS: incomplete colonoscopy. cecum not seen TECHNIQUE: A CT scan of the abdomen and pelvis was performed without the use of intravenous contrast. Images we re recorded and evaluated at appropriate window settings. Reformats: coronal and sagittal. For radiat ion dose reduction, the following was used: automated exposure control, adjustment of mA and/or kV ac cording to patient size. COMPARISON: Report from prior CT abdomen and pelvis dated 09/02/2013. FINDINGS: Image quality: Diagnostic. Lower chest: Unremarkable. Liver: No contour-deforming mass. Gallbladder: No radiopaque stones or wall thickening. Biliary tree: No intrahepatic or extrahepatic dilation, accounting for age. Spleen: No splenomegaly. Pancreas: No pancreatic ductal dilation. Adrenals: No adrenal nodule. Kidneys and ureters: No hydronephrosis. No contour-deforming mass. Stomach, bowel and peritoneum: Remote gastric bypass with Cecilia-en-Y anastomosis. Stomach is decompres sed. Remote jejunal surgical anastomosis in the left lower abdomen. Small bowel is unremarkable. A re ctal catheter is in place. Dilute water-soluble contrast was injected and fills the colon. No obstruc ting or constricting lesions. No polypoid filling defects identified. There is minimal debris in the tip of the cecum. Lymph nodes: No central or retroperitoneal adenopathy. Vessels: No infrarenal aortic aneurysm. Reproductive organs: Unremarkable. Bladder: Bladder wall thickness is normal, accounting for underdistention. No calcified bladder stone s. Pelvic lymph nodes: No adenopathy by size criteria. Bones: No aggressive osseous abnormality. Other: No significant ventral or inguinal hernia. IMPRESSION: 1. No colonic lesion identified. 2. No acute abdominal process. 3. Remote Cecilia-en-Y procedure and remote small bowel resection. Reviewed by: Enio Allen MD on 03/05/2024 12:29 PM PDT Approved by: Enio Allen MD on 03/05/2024 12:29 PM PDT Station ID: [id number]
[2024-03-05] MEDS: DIATRIZOATE MEGLU/DIATRIZO SOD 30 ML BOTTLE PO ONE (12:53)
--- NOTE | 2024-03-05 19:11 | ANESTHESIA POST OP EVALUATION ---
Anesthesia Post Eval - Post Anesthesia Eval Vitals: Last Vital Signs Temp 36.4 C L 03/05/24 11:00 Pulse 70 03/05/24 11:00 Resp 16 03/05/24 11:00 BP 119/71 03/05/24 11:00 Pulse Ox 99 03/05/24 11:00 O2 Flow Rate CV Function Including HR & BP: Stable Pain Control: Satisfactory Nausea & Vomiting: Negative Mental Status: Baseline Respiratory Status: Airway Patent Hydration Status: Satisfactory Anesthesia Complications: None
== END 2024-03-05 08:19 | disposition home or self-care (01) ==
LOC: SDS 08:18
PROVIDERS: ATTEND Surgery
PROC: 0DJD8ZZ Inspection of Lower Intestinal Tract, Via Natural or Artificial Opening Endoscopic (ICD-10-PCS; principal; 2024-03-05 09:30)
PROC: 0DJ08ZZ Inspection of Upper Intestinal Tract, Via Natural or Artificial Opening Endoscopic (ICD-10-PCS; 2024-03-05 09:30)
DX: Z12.11 Encounter for screening for malignant neoplasm of colon (principal); K44.9 Diaphragmatic hernia without obstruction or gangrene; D64.9 Anemia, unspecified; Z98.84 Bariatric surgery status; E66.01 Morbid (severe) obesity due to excess calories; Z68.41 Body mass index [BMI] 40.0-44.9, adult; Z98.0 Intestinal bypass and anastomosis status; I10 Essential (primary) hypertension; Z90.49 Acquired absence of other specified parts of digestive tract
CPT/HCPCS: 43235; 45378; 74176; J7120; Q9963

== ENCOUNTER 2024-03-08 11:57 | Outpatient (CLI) | payer OTHER | END 2024-03-08 11:58 | disposition home or self-care (01) | LOC: LAB.N 11:57 | PROVIDERS: ATTEND Family Medicine | DX: M60.9 Myositis, unspecified (principal); M25.50 Pain in unspecified joint | CPT/HCPCS: 36415; 82550; 85651 ==